=== PATIENT | male | born 1985 | race Caucasian/White ===

== ENCOUNTER 2024-12-27 14:34 | Emergency (ER) | payer MEDICAID, SELFPAY ==
[2024-12-27 14:47] VITALS: BP 112/77; PULSE 73; RESP 18; TEMP 36.4; O2SAT 100
--- NOTE | 2024-12-27 15:01 | ED_ITS ---
HPI - Wound/Laceration General Chief Complaint: Wound/Laceration Stated Complaint: stitch removal Time Seen by Provider: 12/27/24 14:50 Source: patient Mode of arrival: ambulatory Limitations: no limitations History of Present Illness HPI narrative: Aroldo is a 39-year-old male patient presenting to the clinic today for a suture removal. He reports he had a cyst removed from his head approximately 10 days ago in [place]. States the sutures are ready to come out. Denies any other complaints at this time. Related Data Home Medications ?Medication ?Instructions ?Recorded ?Confirmed ?Last Taken ?Type Breo Ellipta 12/27/24 Unknown History albuterol sulfate 90 mcg/actuation inhalation 12/27/24 Unknown History breath activated powder inhaler (ProAir RespiClick) Allergies Allergy/AdvReac Type Severity Reaction Status Date / Time No Known Allergies Allergy Verified 12/27/24 14:54 Review of Systems Review of Systems: Pertinent positives per HPI. Patient denies any fever, chills, rash, headache, visual changes, dizziness, cough, runny nose, sore throat, shortness of breath, chest pain, palpitations, nausea, vomiting, diarrhea, constipation, abdominal pain, or any urinary issues. PMFSH Comments At the time of my signature, I reviewed and agree with the nursing past medical, surgical, social, and family history. There is no relevant family history pertinent to the patient complaint. Exam Narrative: General: Well-developed, well nourished, in no apparent distress Head: Normocephalic, atraumatic. Cardio: Regular rate and rhythm, s1 and s2 normal, no murmur appreciated. Resp: Clear to auscultation bilaterally, no rhonchi, rales, wheezing or rubs. Integumentary: [place], warm, and dry, running suture to the right scalp. Suture was removed. No sign of infection. Course Course Emergency Course: Portions of this record may have been created with voice recognition software. Level of Care: Express Care Visit Vital Signs Vital signs: Vital Signs Temperature 36.4 C 12/27/24 14:47 Pulse Rate 73 12/27/24 14:47 Respiratory Rate 18 12/27/24 14:47 Blood Pressure 112/77 12/27/24 14:47 Pulse Oximetry 100 12/27/24 14:47 Oxygen Delivery Room Air 12/27/24 14:47 Temperature 36.4 C 12/27/24 14:47 Pulse Rate 73 12/27/24 14:47 Respiratory Rate 18 12/27/24 14:47 Blood Pressure 112/77 12/27/24 14:47 Pulse Oximetry 100 12/27/24 14:47 Oxygen Delivery Room Air 12/27/24 14:47 Vital signs reviewed MDM - Wound/Laceration MDM Narrative Medical decision making narrative: At the time of visit patient is resting comfortably on the exam table. Patient appears to be nontoxic. Plan: Patient is here for suture removal. Running suture was removed and patient tolerated well. Supportive measures were discussed with the patient and they voiced understanding discharge instructions and agrees to treatment plan. Return precautions reviewed Differential Diagnosis Differential diagnosis: Likely laceration, abscess, abrasion and avulsion of skin Discharge Plan Discharge Clinical Impression: Encounter for removal of sutures Patient Disposition: Home Condition: Stable Instructions: Antibiotic Form, Stitches Removal (ED) Additional Instructions: Suture was removed in the clinic today Keep area clean and dry Follow-up with your primary care doctor as needed Patient Language: Ukrainian Prescriptions: No Action ProAir RespiClick 90 mcg/actuation aerosol powdr breath activated INHALATION Breo Ellipta Follow-up/Referrals: UNKNOWN,DOCTOR [Primary Care Provider] - Time of Disposition: 15:00 Quality NIHSS Nursing Documentation ED NIHSS nursing documentation: reviewed/agree
== END 2024-12-27 15:05 | disposition home or self-care (01) ==
PROVIDERS: Emergency Provider Nurse Practitioner Family
DX: Z48.02 Encounter for removal of sutures (principal); J45.909 Unspecified asthma, uncomplicated
CPT/HCPCS: 99211; G0463